=== PATIENT | male | born 1955 | race Caucasian/White ===

== ENCOUNTER 2024-10-05 08:30 | Inpatient (IN) | payer MEDICARE, BC ==
[~2024-10-05] VITALS: Ht 180.3 cm; Wt 79.4 kg
[2024-10-05 09:01] LABS: BASOPHILS % (AUTO) 0.5 % (0.0-2.0); EOSINOPHILS % (AUTO) 0.6 % (0.0-7.0); HEMATOCRIT 33.2 % (36.7-47.1); HEMOGLOBIN 11.7 g/dL (12.5-16.3); LYMPHOCYTES # (AUTO) 0.9 K/uL (0.8-4.8); LYMPHOCYTES % (AUTO) 12.7 % (20.5-51.5); MEAN CORPUSCULAR HGB CONC 35 g/dL (32.5-36.3); MONOCYTES # (AUTO) 0.7 K/uL (0.1-1.30); NEUTROPHILS # (AUTO) 5.6 K/uL (1.8-8.9); NEUTROPHILS % (AUTO) 76.2 % (38.5-71.5); PLATELET COUNT (AUTO) 221 K/uL (152-348); RED BLOOD CELL COUNT(AUTO) 3.54 MIL/uL (4.06-5.63); WHITE BLOOD COUNT (AUTO) 7.3 K/uL (3.6-10.2)
[2024-10-05 09:03] LABS: DIFFERENTIAL COMMENT 1
[2024-10-05 09:19] LABS: CARBON DIOXIDE 25 mmol/L (21-32); CHLORIDE 90 mmol/L (98-107); CREATININE 0.6 mg/dL (0.6-1.3); GLUCOSE 174 mg/dL (74-106); POTASSIUM 4.2 mmol/L (3.5-5.1); SODIUM SERUM 124 mmol/L (136-145); UREA NITROGEN, BLOOD 33 mg/dL (7-18)
[2024-10-05 09:20] LABS: ETHANOL < 3 MG/DL (0-10)
[2024-10-05 09:21] LABS: AMMONIA 12 umol/L (11-32)
[2024-10-05] MEDS ORDERED: LOSA25TA27 PO (09:38)
[2024-10-05] MEDS ORDERED: METO-358 PO (09:38)
[2024-10-05] MEDS ORDERED: METF-886 PO (09:38)
[2024-10-05] MEDS ORDERED: EZET10TA32 PO (09:38)
[2024-10-05] MEDS ORDERED: TAMS-3 PO (09:38)
[2024-10-05] MEDS ORDERED: ALIR150P3 SQ (09:38)
[2024-10-05 09:39] LABS: ACETAMINOPHEN < 2.0 ug/mL (10-30); ALANINE AMINOTRANSFERASE 24 U/L (16-63); ALBUMIN 2.4 g/dL (3.4-5.0); ALKALINE PHOSPHATASE 63 U/L (50-136); ASPARTATE AMINOTRANSFERASE 13 U/L (15-37); BILIRUBIN,DIRECT 0.1 mg/dL (0.0-0.2); BILIRUBIN,TOTAL 2.4 mg/dL (0.2-1.0); TOTAL PROTEIN, SERUM 5.6 g/dL (6.4-8.2)
[2024-10-05 09:52] LABS: *OCCULT BLOOD STOOL NEGATIVE (NEGATIVE)
[2024-10-05 11:14] VITALS: BP 117/74; TEMP 98.1; O2SAT 96
[2024-10-05] MEDS ORDERED: MAGNESIUM HYDROXIDE 30 ML LIQUID UDC PO PRN (13:45)
[2024-10-05] MEDS ORDERED: ACETAMINOPHEN 325 MG TABLET PO PRN (13:45)
[2024-10-05] MEDS ORDERED: HYDROCODONE/APAP 5-325MG TABLET PO PRN (14:00)
[2024-10-05] MEDS: ONDANSETRON 4 MG/2 ML VIAL IV PRN (14:13)
[2024-10-05] MEDS: IV NS 1000 ML 1,000 ML IV PRN ×2 (14:19→18:28)
[2024-10-05 15:13] VITALS: BP 108/72; TEMP 98.7; O2SAT 96
[2024-10-05 15:20] VITALS: BP 108/72; TEMP 98.7; O2SAT 96
[2024-10-05] MEDS ORDERED: MONT10TA33 PO (15:49)
[2024-10-05] MEDS ORDERED: FLUT1BLS6 IH (15:50)
[2024-10-05] MEDS ORDERED: CELE200C PO (15:51)
[2024-10-05] MEDS ORDERED: CELECOXIB 200 MG CAPSULE PO PRN (16:15)
[2024-10-05] MEDS: LOSARTAN POTASSIUM 25 MG TABLET PO SCH (17:47)
[2024-10-05] MEDS: TAMSULOSIN HCL 0.4 MG CAP.SR.24H PO SCH (17:47)
[2024-10-05] MEDS: ENOXAPARIN SODIUM 40 MG/0.4 ML DISP.SYRIN SQ SCH (17:56)
[2024-10-05 20:00] VITALS: BP 122/65; TEMP 98.4; O2SAT 94
[2024-10-06] VITALS (7 sets, daily range): BP systolic 101–114; BP diastolic 60–72; TEMP 98–99.3; O2SAT 96–100
[2024-10-06 06:50] LABS: BASOPHILS % (AUTO) 0.7 % (0.0-2.0); EOSINOPHILS % (AUTO) 0.4 % (0.0-7.0); HEMATOCRIT 24.8 % (36.7-47.1); LYMPHOCYTES # (AUTO) 0.9 K/uL (0.8-4.8); MEAN CORPUSCULAR HEMOGLOBIN 33.8 uug (23.8-33.4); MEAN CORPUSCULAR HGB CONC 36 g/dL (32.5-36.3); MEAN CORPUSCULAR VOLUME 93.2 fL (73.0-96.2); MONOCYTES # (AUTO) 0.6 K/uL (0.1-1.30); NEUTROPHILS # (AUTO) 4.6 K/uL (1.8-8.9); NEUTROPHILS % (AUTO) 74.9 % (38.5-71.5); PLATELET COUNT (AUTO) 214 K/uL (152-348); RED BLOOD CELL COUNT(AUTO) 2.67 MIL/uL (4.06-5.63); RED CELL DISTRIBUTION WIDTH 13.1 % (12.1-16.2); WHITE BLOOD COUNT (AUTO) 6.1 K/uL (3.6-10.2)
[2024-10-06 07:14] LABS: CARBON DIOXIDE 26 mmol/L (21-32); CHLORIDE 102 mmol/L (98-107); CHOLESTEROL 60 mg/dL (<200); CREATININE 0.7 mg/dL (0.6-1.3); DIFFERENTIAL COMMENT 1; GLUCOSE 169 mg/dL (74-106); HDL CHOLESTEROL 45 mg/dL (40-60); MAGNESIUM 1.7 mg/dL (1.8-2.4); PHOSPHOROUS 2.3 mg/dL (2.5-4.9); POTASSIUM 3.7 mmol/L (3.5-5.1); SODIUM SERUM 134 mmol/L (136-145); TRIGLYCERIDES 78 MG/DL (30-150); UREA NITROGEN, BLOOD 26 mg/dL (7-18)
[2024-10-06] MEDS: EZETIMIBE 10 MG TABLET PO SCH (08:26)
[2024-10-06] MEDS: METFORMIN XR 500 MG TAB.SR.24H PO SCH (08:28)
[2024-10-06] MEDS: MAGNESIUM OXIDE 400 MG TABLET PO ONE (10:33)
[2024-10-06 16:10] LABS: *BILIRUBIN,URIN NEGATIVE (NEGATIVE); *BLOOD, URINE NEGATIVE (NEGATIVE); *CLARITY,URINE CLEAR (CLEAR); *COLOR,URINE YELLOW (YELLOW); *KETONES,URINE TRACE (NEGATIVE); *PROTEIN,URINE NEGATIVE (NEGATIVE); *UROBILINOGEN,URINE 0.2 E.U./dl (NORMAL); LEUKOCYTE ESTERASE ,URINE NEGATIVE (NEGATIVE); NITRITE, URINE NEGATIVE (NEGATIVE); UGLUCOSE TRACE (NEGATIVE)
[2024-10-06 16:12] LABS: BACTERIA,URINE FEW /HPF (NONE SEEN); WBC,URINE 0-3 /HPF (0-3)
[2024-10-06 16:15] LABS: *SODIUM RNDM,URINE 35 mmol/L (40-220)
[2024-10-06 16:21] LABS: *AMPHETAMINE, URINE NEGATIVE (NEGATIVE); *BARBITURATE, URINE NEGATIVE (NEGATIVE); *BENZODIAZEPINE, URINE NEGATIVE (NEGATIVE); *CANNABINOID, URINE NEGATIVE (NEGATIVE); *COCCAINE, URINE NEGATIVE (NEGATIVE); *OPIATE, URINE NEGATIVE (NEGATIVE); *PHENCYCLIDINE SCREEN,URINE NEGATIVE (NEGATIVE); FENTANYL, URINE NEGATIVE (NEGATIVE)
[2024-10-06] MEDS: LOSARTAN POTASSIUM 25 MG TABLET PO SCH (17:18)
[2024-10-06] MEDS: NEUTRA PHOS PACKET PO ONE (17:18)
[2024-10-06] MEDS: MONTELUKAST SODIUM 10 MG TABLET PO SCH (17:22)
[2024-10-06] MEDS: FLUTICASONE/VILANTEROL 1 EACH BLST.W.DEV INH SCH (18:11)
[2024-10-06] MEDS: TAMSULOSIN HCL 0.4 MG CAP.SR.24H PO SCH (20:54)
[2024-10-07] VITALS (19 sets, daily range): BP systolic 92–128; BP diastolic 48–67; TEMP 97.5–98.8; O2SAT 93–100
[2024-10-07] MEDS: HYDROCODONE/APAP 5-325MG TABLET PO PRN (00:44)
[2024-10-07] MEDS: IV NORMAL SALINE 500 ML IV ONE (02:56)
[2024-10-07 07:13] LABS: BASOPHILS % (AUTO) 0.8 % (0.0-2.0); EOSINOPHILS % (AUTO) 0.5 % (0.0-7.0); LYMPHOCYTES # (AUTO) 0.8 K/uL (0.8-4.8); LYMPHOCYTES % (AUTO) 13.2 % (20.5-51.5); MEAN CORPUSCULAR HEMOGLOBIN 33.4 uug (23.8-33.4); MEAN CORPUSCULAR HGB CONC 36 g/dL (32.5-36.3); MEAN CORPUSCULAR VOLUME 93.7 fL (73.0-96.2); MONOCYTES # (AUTO) 0.5 K/uL (0.1-1.30); MONOCYTES % (AUTO) 8.4 % (0.0-11.0); NEUTROPHILS # (AUTO) 4.6 K/uL (1.8-8.9); NEUTROPHILS % (AUTO) 77.1 % (38.5-71.5); PLATELET COUNT (AUTO) 182 K/uL (152-348); RED CELL DISTRIBUTION WIDTH 13.2 % (12.1-16.2); WHITE BLOOD COUNT (AUTO) 5.9 K/uL (3.6-10.2)
[2024-10-07 07:18] LABS: DIFFERENTIAL COMMENT 1; HEMATOCRIT 19.4 % (36.7-47.1); RED BLOOD CELL COUNT(AUTO) 2.07 MIL/uL (4.06-5.63)
[2024-10-07 07:19] LABS: HEMOGLOBIN 6.9 g/dL (12.5-16.3)
[2024-10-07 07:33] LABS: CALCIUM 7.6 mg/dL (8.5-10.1); CARBON DIOXIDE 26 mmol/L (21-32); CHLORIDE 105 mmol/L (98-107); CREATININE 0.7 mg/dL (0.6-1.3); GLUCOSE 165 mg/dL (74-106); MAGNESIUM 1.8 mg/dL (1.8-2.4); PHOSPHOROUS 2.6 mg/dL (2.5-4.9); POTASSIUM 4.1 mmol/L (3.5-5.1); SODIUM SERUM 137 mmol/L (136-145); UREA NITROGEN, BLOOD 31 mg/dL (7-18); URIC ACID 3.2 mg/dL (3.5-7.2)
[2024-10-07 07:47] LABS: THYROID STIMULATING HORMONE 2.517 mIU/mL (0.358-3.740)
[2024-10-07 08:51] LABS: EOSINOPHILS # (AUTO) 0.1 K/uL (0.0-0.7); MONOCYTES # (AUTO) 0.5 K/uL (0.1-1.30)
[2024-10-07 08:53] LABS: BASOPHILS # (AUTO) 0.1 K/UL (0.0-0.2); BASOPHILS % (AUTO) 0.8 % (0.0-2.0); LYMPHOCYTES # (AUTO) 0.9 K/uL (0.8-4.8); LYMPHOCYTES % (AUTO) 14.1 % (20.5-51.5); MEAN CORPUSCULAR HEMOGLOBIN 33.4 uug (23.8-33.4); MEAN CORPUSCULAR HGB CONC 35 g/dL (32.5-36.3); MONOCYTES % (AUTO) 7.5 % (0.0-11.0); NEUTROPHILS # (AUTO) 4.6 K/uL (1.8-8.9); NEUTROPHILS % (AUTO) 76.6 % (38.5-71.5); PLATELET COUNT (AUTO) 184 K/uL (152-348); RED CELL DISTRIBUTION WIDTH 13.4 % (12.1-16.2)
[2024-10-07] MEDS: LACTULOSE 20 G/30 ML LIQUID UDC PO ONE (08:54)
[2024-10-07 09:02] LABS: DIFFERENTIAL COMMENT 1; HEMATOCRIT 19.1 % (36.7-47.1); HEMOGLOBIN 6.6 g/dL (12.5-16.3); RED BLOOD CELL COUNT(AUTO) 1.99 MIL/uL (4.06-5.63)
[2024-10-07] MEDS ORDERED: IOHEXOL 350 100 ML INFUS..BTL ONE (09:30)
[2024-10-07] MEDS ORDERED: SWABABLE VALVE TRANSFER SET EA MC ONE (09:30)
[2024-10-07] MEDS ORDERED: IV NORMAL SALINE 250 ML IV ONE (09:31)
[2024-10-07] MEDS: PANTOPRAZOLE SODIUM 40 MG VIAL IV SCH (11:12)
[2024-10-07 12:05] LABS: ALBUMIN 2.6 g/dL (3.4-5.0); BILIRUBIN,DIRECT 0.1 mg/dL (0.0-0.2); BILIRUBIN,TOTAL 0.3 mg/dL (0.2-1.0); TOTAL PROTEIN, SERUM 4.4 g/dL (6.4-8.2)
[2024-10-07] MEDS: SOD FERRIC GLUC COMPLX/SUCROSE 125 MG in IV NORMAL SALINE 100 ML IV SCH (13:42)
[2024-10-07 16:28] LABS: BAND % (MANUAL) 6 % (0-10); LYMPHOCYTES % (MANUAL) 11 % (20-40); MONOCYTES % (MANUAL) 10 % (2-10); NEUTROPHILS % (MANUAL) 73 % (42-75)
[2024-10-07 16:29] LABS: ANISOCYTOSIS 1+; PLATELET ESTIMATE ADEQUATE
[2024-10-07 19:40] LABS: *OCCULT BLOOD STOOL POSITIVE (NEGATIVE)
[2024-10-07] MEDS ORDERED: BISACODYL 10 MG SUPP.RECT RC PRN (21:15)
[2024-10-07] MEDS: DOCUSATE SODIUM 100 MG CAPSULE PO SCH (21:53)
[2024-10-08] VITALS (8 sets, daily range): BP systolic 108–127; BP diastolic 58–65; TEMP 97.5–100; O2SAT 95–98
[2024-10-08 08:06] LABS: BASOPHILS % (AUTO) 0.9 % (0.0-2.0); EOSINOPHILS # (AUTO) 0.3 K/uL (0.0-0.7); EOSINOPHILS % (AUTO) 4.7 % (0.0-7.0); HEMATOCRIT 23.1 % (36.7-47.1); HEMOGLOBIN 8.3 g/dL (12.5-16.3); LYMPHOCYTES % (AUTO) 18.4 % (20.5-51.5); MEAN CORPUSCULAR HEMOGLOBIN 33.2 uug (23.8-33.4); MEAN CORPUSCULAR HGB CONC 36 g/dL (32.5-36.3); MEAN CORPUSCULAR VOLUME 92.8 fL (73.0-96.2); MONOCYTES # (AUTO) 0.5 K/uL (0.1-1.30); MONOCYTES % (AUTO) 9.1 % (0.0-11.0); NEUTROPHILS # (AUTO) 3.6 K/uL (1.8-8.9); NEUTROPHILS % (AUTO) 66.9 % (38.5-71.5); PLATELET COUNT (AUTO) 162 K/uL (152-348); RED CELL DISTRIBUTION WIDTH 13.7 % (12.1-16.2); WHITE BLOOD COUNT (AUTO) 5.4 K/uL (3.6-10.2)
[2024-10-08 08:14] LABS: DIFFERENTIAL COMMENT 1; RED BLOOD CELL COUNT(AUTO) 2.49 MIL/uL (4.06-5.63)
[2024-10-08 08:15] LABS: CALCIUM 8.2 mg/dL (8.5-10.1); CARBON DIOXIDE 27 mmol/L (21-32); CHLORIDE 105 mmol/L (98-107); CREATININE 0.7 mg/dL (0.6-1.3); GLUCOSE 141 mg/dL (74-106); MAGNESIUM 1.7 mg/dL (1.8-2.4); PHOSPHOROUS 2.8 mg/dL (2.5-4.9); POTASSIUM 3.9 mmol/L (3.5-5.1); SODIUM SERUM 138 mmol/L (136-145); UREA NITROGEN, BLOOD 11 mg/dL (7-18)
[2024-10-08] MEDS: MAGNESIUM SULFATE/D5W 100 ML IV SCH (09:24)
[2024-10-08] MEDS ORDERED: DEXTROSE 50% 50 ML DISP.SYRIN IV PRN (11:45)
[2024-10-08] MEDS: BLOOD SUGAR DIAGNOSTIC 1 EACH STRIP VI SCH (12:04)
[2024-10-08] MEDS: INSULIN REGULAR, HUMAN 1000 UNIT/10 ML VIAL SQ PRN (12:09)
[2024-10-08 13:40] LABS: HEMATOCRIT 21.9 % (36.7-47.1); HEMOGLOBIN 7.6 g/dL (12.5-16.3)
[2024-10-09] VITALS (8 sets, daily range): BP systolic 108–137; BP diastolic 61–70; TEMP 97.9–98.5; O2SAT 96–98
[2024-10-09 06:30] LABS: BASOPHILS # (AUTO) 0.1 K/UL (0.0-0.2); BASOPHILS % (AUTO) 1.1 % (0.0-2.0); EOSINOPHILS # (AUTO) 0.5 K/uL (0.0-0.7); HEMATOCRIT 22.4 % (36.7-47.1); LYMPHOCYTES % (AUTO) 17.7 % (20.5-51.5); MEAN CORPUSCULAR HEMOGLOBIN 32.9 uug (23.8-33.4); MEAN CORPUSCULAR HGB CONC 36 g/dL (32.5-36.3); MEAN CORPUSCULAR VOLUME 92.3 fL (73.0-96.2); MONOCYTES # (AUTO) 0.5 K/uL (0.1-1.30); MONOCYTES % (AUTO) 8.1 % (0.0-11.0); NEUTROPHILS # (AUTO) 3.6 K/uL (1.8-8.9); NEUTROPHILS % (AUTO) 64.1 % (38.5-71.5); PLATELET COUNT (AUTO) 183 K/uL (152-348); WHITE BLOOD COUNT (AUTO) 5.7 K/uL (3.6-10.2)
[2024-10-09 06:46] LABS: CALCIUM 8.4 mg/dL (8.5-10.1); CARBON DIOXIDE 30 mmol/L (21-32); CHLORIDE 104 mmol/L (98-107); CREATININE 0.7 mg/dL (0.6-1.3); DIFFERENTIAL COMMENT 1; GLUCOSE 143 mg/dL (74-106); MAGNESIUM 1.8 mg/dL (1.8-2.4); PHOSPHOROUS 4.1 mg/dL (2.5-4.9); POTASSIUM 3.7 mmol/L (3.5-5.1); RED BLOOD CELL COUNT(AUTO) 2.43 MIL/uL (4.06-5.63); SODIUM SERUM 139 mmol/L (136-145); UREA NITROGEN, BLOOD 5 mg/dL (7-18)
[2024-10-09] MEDS ORDERED: KETAMINE HCL 500 MG/5 ML VIAL ONE (18:48)
[2024-10-09] MEDS ORDERED: PROPOFOL 200 MG/20 ML BOTTLE ONE (19:00)
[2024-10-09] MEDS ORDERED: SIMETHICONE 40 MG/0.6 ML, 30ML BOTTLE ONE (19:00)
[2024-10-10] MEDS: SENNOSIDES 1 TABLET PO SCH (00:08)
[2024-10-10 04:27] VITALS: BP 138/73; TEMP 97.7; O2SAT 96
[2024-10-10 06:50] LABS: BASOPHILS # (AUTO) 0.1 K/UL (0.0-0.2); BASOPHILS % (AUTO) 1.1 % (0.0-2.0); EOSINOPHILS # (AUTO) 0.4 K/uL (0.0-0.7); EOSINOPHILS % (AUTO) 6.9 % (0.0-7.0); HEMATOCRIT 22.4 % (36.7-47.1); LYMPHOCYTES # (AUTO) 0.9 K/uL (0.8-4.8); LYMPHOCYTES % (AUTO) 17.5 % (20.5-51.5); MEAN CORPUSCULAR HEMOGLOBIN 33.1 uug (23.8-33.4); MEAN CORPUSCULAR HGB CONC 36 g/dL (32.5-36.3); MEAN CORPUSCULAR VOLUME 93.4 fL (73.0-96.2); MONOCYTES # (AUTO) 0.5 K/uL (0.1-1.30); MONOCYTES % (AUTO) 9.1 % (0.0-11.0); NEUTROPHILS # (AUTO) 3.5 K/uL (1.8-8.9); NEUTROPHILS % (AUTO) 65.4 % (38.5-71.5); PLATELET COUNT (AUTO) 225 K/uL (152-348); RED CELL DISTRIBUTION WIDTH 13.7 % (12.1-16.2); WHITE BLOOD COUNT (AUTO) 5.3 K/uL (3.6-10.2)
[2024-10-10 07:09] LABS: CALCIUM 8.2 mg/dL (8.5-10.1); CARBON DIOXIDE 30 mmol/L (21-32); CHLORIDE 105 mmol/L (98-107); CREATININE 0.7 mg/dL (0.6-1.3); GLUCOSE 124 mg/dL (74-106); POTASSIUM 3.6 mmol/L (3.5-5.1); SODIUM SERUM 138 mmol/L (136-145); UREA NITROGEN, BLOOD 7 mg/dL (7-18)
[2024-10-10 07:13] LABS: DIFFERENTIAL COMMENT 1
[2024-10-10 08:00] VITALS: BP 138/72; TEMP 99; O2SAT 96
[2024-10-10] MEDS: MIRALAX 17 GM POWD.PACK PO SCH (08:54)
[2024-10-10 12:00] VITALS: BP 130/76; TEMP 98.9; O2SAT 93
[2024-10-10] MEDS ORDERED: POLY17PO4 PO (13:00)
[2024-10-10] MEDS ORDERED: PANT40TA2 PO (13:00)
[2024-10-10] MEDS ORDERED: FERR325T23 PO (13:00)
[2024-10-10] MEDS ORDERED: SENN8.6T19 PO (13:00)
[2024-10-10] MEDS ORDERED: ASCO500C18 PO (13:00)
[2024-10-10] MEDS ORDERED: SUCR1ORA PO (13:00)
[2024-10-10 16:00] VITALS: BP 127/74; TEMP 98.8; O2SAT 94
[2024-10-10] MEDS ORDERED: PANTOPRAZOLE SODIUM 40 MG TABLET.DR PO SCH (17:00)
== END 2024-10-10 16:15 | disposition home or self-care (01) | DRG 640 ==
LOC: ER 08:32 → TELE3 10:24
PROVIDERS: ADMIT Nurse Practitioner Acute Care; ATTEND Nurse Practitioner Acute Care
PROC: 30233N1 Transfusion of Nonautologous Red Blood Cells into Peripheral Vein, Percutaneous Approach (ICD-10-PCS; principal; 2024-10-07)
PROC: 05HC33Z Insertion of Infusion Device into Left Basilic Vein, Percutaneous Approach (ICD-10-PCS; 2024-10-07)
PROC: 0DB68ZX Excision of Stomach, Via Natural or Artificial Opening Endoscopic, Diagnostic (ICD-10-PCS; 2024-10-09)
DX: E86.9 Volume depletion, unspecified (principal); K25.4 Chronic or unspecified gastric ulcer with hemorrhage; E44.0 Moderate protein-calorie malnutrition; I95.1 Orthostatic hypotension; E87.1 Hypo-osmolality and hyponatremia; D50.0 Iron deficiency anemia secondary to blood loss (chronic); E86.0 Dehydration; E83.42 Hypomagnesemia; I10 Essential (primary) hypertension; E83.39 Other disorders of phosphorus metabolism; E88.09 Other disorders of plasma-protein metabolism, not elsewhere classified; K29.70 Gastritis, unspecified, without bleeding; N40.0 Benign prostatic hyperplasia without lower urinary tract symptoms; E11.65 Type 2 diabetes mellitus with hyperglycemia; Z79.84 Long term (current) use of oral hypoglycemic drugs; Z87.11 Personal history of peptic ulcer disease; I25.10 Atherosclerotic heart disease of native coronary artery without angina pectoris; G43.909 Migraine, unspecified, not intractable, without status migrainosus
CPT/HCPCS: 36415; 70030-TC; 70450; 71045; 82533; 83550; 83605; 83735; 84100; 84300; 84443; 84484; 84550; 85018; 85025; 85730; 86850; 86900; 86901; 86920; 87040; 93307; 93880; A4606; A4663; A6213; G0378; G0480; J1650; J1815; J2405; J2470; J2916; J3475; J3490; J7040; P9016; Q9967